=== PATIENT | female | born 1950 | race Caucasian/White ===

== ENCOUNTER 2020-03-26 09:27 | Emergency (ER) | payer OTHER, MEDICARE ==
[2020-03-26] MEDS ORDERED: Potassium Chloride 20 MEQ Tab.ER PO ONE (10:16)
[2020-03-26] MEDS: Ondansetron 4 MG Tab.DIS ONE ×2 (10:45→12:36)
--- NOTE | 2020-03-26 11:00 | EDM.PDOC ---
ED HPI GENERAL MEDICAL PROBLEM - General Chief Complaint: General Stated Complaint: Told to come here for low potassium Time Seen by Provider: 03/26/20 09:40 Source of Information: Reports: Patient History Limitations: Reports: No Limitations - History of Present Illness INITIAL COMMENTS - FREE TEXT/NARRATIVE: Patient is a 69-year-old white female with history of hepatitis C who presents after being told to come to the emergency department by her usual physician after having a low potassium yesterday. Potassium was 2.6 yesterday. Patient denies other issues and says she came in because her doctor wanted her to have her potassium evaluated. Onset: Today Onset Date: 03/25/20 - Related Data Allergies Allergy/AdvReac Type Severity Reaction Status Date / Time Latex, Natural Rubber Allergy Severe Anaphylactic Verified 03/26/20 11:19 Shock metformin Allergy Abdominal Verified 03/26/20 11:21 Cramps Past Medical History HEENT History: Reports: Impaired Vision Other HEENT History: wears glasses Gastrointestinal History: Reports: Cirrhosis, Hepatitis Other Gastrointestinal History: History of Hep C 40 plus years. Is cured now but has cirrhosis. Receives paracenthesis every two weeks for ascitis. Musculoskeletal History: Reports: Arthritis Endocrine/Metabolic History: Reports: Diabetes, Type II Other Dermatologic History: bruises easily - Infectious Disease History Infectious Disease History: Reports: Hepatitis C - Past Surgical History HEENT Surgical History: Reports: None GI Surgical History: Reports: Abdominal paracentesis, Small Bowel Other GI Surgeries/Procedures: hx of ileus and part of small bowel ressected Social & Family History - Tobacco Use Tobacco Use Status *Q: Never Tobacco User Second Hand Smoke Exposure: No - Caffeine Use Caffeine Use: Reports: None - Recreational Drug Use Recreational Drug Use: No ED ROS GENERAL - Review of Systems Review Of Systems: See Below Constitutional: Denies: Fever, Chills Respiratory: Reports: No Symptoms (Occasional cough from PND), Cough. Denies: Shortness of Breath, Wheezing GI/Abdominal: Reports: Nausea. Denies: Abdominal Pain, Vomiting Skin: Reports: Bruising ED EXAM, GENERAL - Physical Exam Exam: See Below Exam Limited By: No Limitations General Appearance: Alert, No Apparent Distress, Cachetic Nose: Normal Inspection, Normal Mucosa Throat/Mouth: Normal Inspection, Normal Lips, Normal Voice Head: Atraumatic, Normocephalic Neck: Supple, Non-Tender Respiratory/Chest: No Respiratory Distress, Lungs Clear, Chest Non-Tender Cardiovascular: Regular Rate, Rhythm, Systolic Murmur (Grade 1/6 sytolic murmur) GI/Abdominal: Soft, Distended, Other (Positive fluid wave) Neurological: Alert, Oriented, Normal Cognition Psychiatric: Normal Affect Skin Exam: Warm, Dry, Ecchymosis (Scattered ecchymosis of arms) #1 Interpretation Rhythm: NSR EKG Interpretation Comments: ld inferiro infart with Q in 2,3 and AVF Course - Vital Signs Text/Narrative:: Patient had BMP which revealed potassium of 3.2. She had been given 40 mEq of extended release potassium prior to result. She was prescribed 10 mEq of potassium chloride oral solution daily until [facility] [place] [facility]. Patient also had elevated BUN this was discussed with the patient's usual physician. Dr. Yancey who agreed with plan for the them to recheck potassium and BUN at next visit on Sunday. No treatment for elevated BUN at this time was recommended. Last Recorded V/S: Last Vital Signs Temp 97.3 F 03/26/20 11:03 Pulse 78 03/26/20 11:03 Resp 20 03/26/20 11:03 BP 106/63 03/26/20 11:03 Pulse Ox 98 03/26/20 11:03 - Orders/Labs/Meds Labs: Laboratory Tests 03/26/20 03/26/20 Range/Units 10: 10:20 WBC 11.9 H (4.0-11.0) K/uL RBC 3.99 (3.80-5.80) M/uL Hgb 10.5 L (11.5-16.5) g/dL Hct 31.3 L (37.0-47.0) % MCV 78 (76-96) fL MCH 26.3 L (27.0-32.0) pg MCHC 33.5 (31.0-35.0) g/dL RDW 15.7 (11.0-16.0) % Plt Count 145 L D (150-500) K/uL MPV 11.5 H (6.0-10.0) fL Neut % (Auto) 83.3 H (45.0-70.0) % Lymph % (Auto) 8.3 L (20.0-40.0) % [place] % (Auto) 7.5 (3.0-10.0) % Eos % (Auto) 0.6 L (1.0-5.0) % Baso % (Auto) 0.3 (0.0-0.5) % Neut # (Auto) 9.90 H (2.00-7.50) K/uL Lymph # (Auto) 0.98 L (1.50-4.00) K/uL [place] # (Auto) 0.89 H (0.20-0.80) K/uL Eos # (Auto) 0.07 (0.04-0.40) K/uL Baso # (Auto) 0.03 (0.02-0.10) K/uL Sodium 132 L (136-145) mmol/L Potassium 3.2 L D (3.5-5.1) mmol/L Chloride 99 (98-107) mmol/L Carbon Dioxide 19.3 L (21.0-32.0) mmol/L Anion Gap 16.9 H (5.0-15.0) mmol/L BUN 93 H* (8-26) mg/dL Creatinine 2.78 H (0.55-1.02) mg/dL Est Cr Clr Drug Dosing 12.81 mL/min Estimated GFR (MDRD) 17 L (>60) MLS/MIN BUN/Creatinine Ratio 33.5 H (6-25) Glucose 251 H (74-100) mg/dL Calcium 8.2 L (8.5-10.1) mg/dL Meds: Medications Discontinued Medications Generic Name Dose Route Start Last Admin Trade Name Bhupinderq PRN Reason Stop Dose Admin Ondansetron HCl Confirm 03/26/20 10:48 03/26/20 12:36 Zofran Odt Administered 03/26/20 10:49 Not Given Dose 4 mg .ROUTE .STK-MED ONE Ondansetron HCl 4 mg 03/26/20 12:36 03/26/20 12:38 Zofran Odt PO 03/26/20 12:37 4 mg ONETIME ONE Administration Potassium Chloride 40 meq 03/26/20 10:16 03/26/20 10:21 Klor-Con M20 PO 03/26/20 10:17 40 meq ONETIME ONE Administration Departure - Departure Time of Disposition: 12:15 Disposition: Home, Self-Care 01 Clinical Impression: Hypokalemia - Discharge Information *PRESCRIPTION DRUG MONITORING PROGRAM REVIEWED*: Not Applicable *COPY OF PRESCRIPTION DRUG MONITORING REPORT IN PATIENT ANUSHA: Not Applicable Instructions: Hypokalemia Referrals: PCP,None [Primary Care Provider] - Forms: ED Department Discharge Additional Instructions: Follow up n Sunday as scheduled Potassium liquid 1 1/2 tsp every day starting tomorrow Return to ED for any worsening or your condition Care Plan Goals: Start taking potassium tomorrow. You will take 1 1/2 tsp every day until Sun. At your appointment at the [facility] in [place] on Sunday please have them recheck your potassium.
[2020-03-26] MEDS ORDERED: Ondansetron 4 MG Tab.DIS PO ONE (12:36)
== END 2020-03-26 12:15 | disposition home or self-care (01) ==
LOC: LB.ED 09:27
DX: E87.6 Hypokalemia (principal); E11.9 Type 2 diabetes mellitus without complications; Z91.040 Latex allergy status; Z88.8 Allergy status to other drugs, medicaments and biological substances
CPT/HCPCS: 36415; 80048; 85025; 93005; 99283; 99285-25; A9270-GY

== ENCOUNTER 2020-04-08 11:10 | Emergency (ER) | payer OTHER, MEDICARE ==
--- NOTE | 2020-04-09 07:25 | ER ---
REASON FOR EMERGENCY ROOM VISIT: Elevated potassium. HISTORY: This 69-year-old woman has a history of chronic hepatitis C with cirrhosis. She also has had chronic renal failure for the past 1 or 2 years. She has mainly seen at the [facility] and has been going there regularly for paracentesis to treat to relieve symptoms of ascites due to her cirrhosis. She is scheduled to return there next Sunday. She has had problems with hyperkalemia and subsequently hypokalemia due to over treatment with Kayexalate. She is known to have elevated creatinine and chronic renal failure. Her labs last time she was at the [facility] came back showing that she has a potassium of 5.6, therefore she was contacted today and told to come into the hospital to have this rechecked. She does feel fine and offers no complaints at this time. PAST MEDICAL HISTORY: 1. Hepatitis C. 2. Chronic renal failure as noted above. 3. Type 2 diabetes mellitus. MEDICATIONS: Reviewed, please see EMR. REVIEW OF SYSTEMS: Unremarkable. ALLERGIES: TO LATEX, NATURAL RUBBER, AND METFORMIN. PHYSICAL EXAMINATION: GENERAL: Reveals a pleasant woman, in no acute distress. VITAL SIGNS: She is afebrile. Heart rate is 81, blood pressure is 110/66, respirations 16, O2 sats 97% on room air. HEENT: No scleral icterus or conjunctivitis is noted. NECK: Supple. No JVD. No adenopathy. CHEST: Clear to auscultation with no wheezes, rhonchi, or rales and good air exchange bilaterally. CARDIAC: Regular rate without murmur. ABDOMEN: She has tense ascites but is nontender. No masses could be palpated. EXTREMITIES: Mild to moderate edema of both ankles. Feet are pink and warm. LABORATORY DATA: We did check a BMP showing that her sodium is 130, her chloride is 101, CO2 is 20.3. Her potassium is elevated at 5.5, her creatinine is 2.96 with a BUN of 74. Her glucose is 218. IMPRESSION: Chronic renal failure with hyperkalemia, mild. PLAN: She had taken Kayexalate in the past and has a prescription that can be renewed, for this, she was taking now 1 dose of Kayexalate (probably 15 g) every 3 times a week. I urged her to resume this and to have her return to get her potassium rechecked on Sunday. She will take 1 dose on Sunday and then another dose on Sunday and we will reassess. [facility] is [facility] and they can follow up with her beyond this point. All questions were answered. She understands and agrees with this plan. DAPHNEY /[id number]
== END 2020-04-08 13:20 | disposition home or self-care (01) ==
LOC: LB.ED 11:10
DX: E87.5 Hyperkalemia (principal); E11.22 Type 2 diabetes mellitus with diabetic chronic kidney disease; N18.9 Chronic kidney disease, unspecified; Z91.040 Latex allergy status; Z88.8 Allergy status to other drugs, medicaments and biological substances; Z86.19 Personal history of other infectious and parasitic diseases
CPT/HCPCS: 36415; 80048; 99283

== ENCOUNTER 2020-06-02 16:21 | Emergency (ER) | payer OTHER, MEDICARE ==
--- NOTE | 2020-06-02 17:20 | EDM.PDOC ---
ED HPI GENERAL MEDICAL PROBLEM - General Chief Complaint: General Stated Complaint: KIDNEY DISEASE Time Seen by Provider: 06/02/20 16:50 Source of Information: Reports: Patient, Old Records History Limitations: Reports: No Limitations - History of Present Illness INITIAL COMMENTS - FREE TEXT/NARRATIVE: patient presented to the ER due to '' abnormal blood tests '', here for a second opinion. 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 No dialysis. Has been following up with the [facility] for this, but was seen today at [facility] - and had blood tests done today that showed worsening of Cr/BUN - per patient's & family reports. They were advised to stop her lasix and to recheck the labs in a couple days - they decided to come to the ER for another eval. Patient denies fever or chills. Reports she is feeling well. No SOB or CP. No abd tenderness. Reports she gets paracentesis every 2 weeks and had one last Sunday. She lives at home with a caregiver. Reports good appetite and energy. Able to ambulate with a walker. Denies fatigue, resp or GI symptoms. Reports that she has a good UOP. No change in mental status or dizziness. Onset: Unknown/Unsure - Related Data Allergies Allergy/AdvReac Type Severity Reaction Status Date / Time Latex, Natural Rubber Allergy Severe Anaphylactic Verified 06/02/20 16:56 Shock metformin Allergy Abdominal Verified 06/02/20 16:56 Cramps Home Meds: Home Meds Furosemide [Lasix] 20 mg PO DAILY 06/02/20 [History] Lactulose 10 gm PO Q8HR #6 ml 06/02/20 [Rx] Sodium Bicarbonate 650 mg PO DAILY 06/02/20 [History] atenoloL [Atenolol] 25 mg PO DAILY 06/02/20 [History] glipiZIDE [Glucotrol] 2.5 mg PO BID 06/02/20 [History] Past Medical History HEENT History: Reports: Impaired Vision Other HEENT History: wears glasses Gastrointestinal History: Reports: Cirrhosis, Hepatitis Other Gastrointestinal History: History of Hep C 40 plus years. Is cured now but has cirrhosis. Receives paracenthesis every two weeks for ascitis. Genitourinary History: Reports: Chronic Renal Insuffiency, Renal Disease Musculoskeletal History: Reports: Arthritis Endocrine/Metabolic History: Reports: Diabetes, Type II Other Dermatologic History: bruises easily - Infectious Disease History Infectious Disease History: Reports: Hepatitis C - Past Surgical History HEENT Surgical History: Reports: None GI Surgical History: Reports: Abdominal paracentesis, Small Bowel Other GI Surgeries/Procedures: hx of ileus and part of small bowel ressected Social & Family History - Caffeine Use Caffeine Use: Reports: Soda Caffeine Use Comment: every once in a while ED ROS GENERAL - Review of Systems Review Of Systems: Comprehensive ROS is negative, except as noted in HPI. Constitutional: Reports: No Symptoms HEENT: Reports: No Symptoms Respiratory: Reports: No Symptoms Cardiovascular: Reports: No Symptoms Endocrine: Reports: No Symptoms GI/Abdominal: Reports: No Symptoms : Reports: No Symptoms Skin: Reports: Bruising Neurological: Reports: No Symptoms Psychiatric: Reports: No Symptoms ED EXAM, GENERAL - Physical Exam Exam: See Below Exam Limited By: No Limitations General Appearance: Alert, WD/WN, No Apparent Distress Eye Exam: Bilateral Eye: Normal Inspection, PERRL Nose: Normal Inspection Head: Atraumatic Respiratory/Chest: No Respiratory Distress, Lungs Clear, Normal Breath Sounds, No Accessory Muscle Use Cardiovascular: Normal Peripheral Pulses, Regular Rate, Rhythm, No Edema GI/Abdominal: Normal Bowel Sounds, Soft, Non-Tender Back Exam: Normal Inspection Extremities: Normal Inspection, Normal Range of Motion, Non-Tender, No Pedal Edema Neurological: Alert, Oriented, Normal Cognition, No Motor/Sensory Deficits Psychiatric: Normal Affect, Normal Mood Skin Exam: Warm, Dry, Intact Course - Vital Signs Last Recorded V/S: Last Vital Signs Temp 36.5 C 06/02/20 19:03 Pulse 72 06/02/20 19:03 Resp 18 06/02/20 19:03 BP 101/57 L 06/02/20 19:03 Pulse Ox 99 06/02/20 19:03 - Orders/Labs/Meds Meds: Medications Discontinued Medications Generic Name Dose Route Start Last Admin Trade Name Peng PRN Reason Stop Dose Admin Lactulose 10 gm 06/02/20 19:19 06/02/20 19:23 Chronulac PO 06/02/20 19:20 10 gm ONETIME ONE Administration - Re-Assessments/Exams Free Text/Narrative Re-Assessment/Exam: 06/02/20 19:30 patient was examined and her labs were reviewed. BUN and Cr from OSH lab are 91 and 3.5. Patient had a BUN in the past of 93, so this isnt something new to here, but the Cr of 3.5 is higher than her usual which is 2.98. Given the patient being asymptomatic - no SOB, No CP, no nausea/emesis and no confusion. Decision was to try out patient therapy by holding on lasix which can be nephrotoxic in her case and to repeat her labs in 2 days - I'll be nuria duran to review her labs in 2 days and will provide her with further instructions. Patient and her grand daughter expressed their understand and appreciation of the service as they were hoping to spend [place] at home and not in the hospital. Given the patient being asymptomatic, I think this plans is reasonable. 06/02/20 19:34 She will also be d/c on lactulose 10mg/15ml TID for 2 days Departure - Departure Time of Disposition: 19:35 Disposition: Home, Self-Care 01 Condition: Good Clinical Impression: Acute on chronic kidney failure, Hyperammonemia - Discharge Information *PRESCRIPTION DRUG MONITORING PROGRAM REVIEWED*: Not Applicable *COPY OF PRESCRIPTION DRUG MONITORING REPORT IN PATIENT ANUSHA: Not Applicable Prescriptions: Lactulose 10 gm PO Q8HR #6 ml Referrals: PCP,None [Primary Care Provider] - Forms: ED Department Discharge Additional Instructions: - hold on taking Lasix for 2 days - return to the hospital on Tuesday 06/05 for blood tests check - I will be available to review your blood tests and provide for instructions. - continue rest of home meds as before - return to the ER if any concerns or signs of confusion Sepsis Event Note (ED) - Focused Exam Vital Signs: Vital Signs Temp Pulse Resp BP Pulse Ox 06/02/20 19:03 36.5 C 72 18 101/57 L 99 06/02/20 17:03 36.3 C 95 18 121/64 99 06/02/20 16:35 36.3 C 95 18 121/64 99 - Problem List & Annotations (1) Acute on chronic kidney failure SNOMED Code(s): 448998366 Code(s): N17.9 - ACUTE KIDNEY FAILURE, UNSPECIFIED; N18.9 - CHRONIC KIDNEY DISEASE, UNSPECIFIED Status: Chronic Priority: Medium Current Visit: Yes Qualifiers: Acute renal failure type: unspecified Chronic kidney disease stage: stage 5, not on chronic dialysis Qualified Code(s): N17.9 - Acute kidney failure, unspecified; N18.5 - Chronic kidney disease, stage 5 (2) Hyperammonemia SNOMED Code(s): 5439155 Code(s): E72.20 - DISORDER OF UREA CYCLE METABOLISM, UNSPECIFIED Status: Chronic Priority: Low Current Visit: Yes - Problem List Review Problem List Initiated/Reviewed/Updated: Yes
[2020-06-02] MEDS ORDERED: Lactulose Soln 10 GM/15 ML 15 ML UD Cup PO ONE (19:19)
== END 2020-06-02 19:58 | disposition home or self-care (01) ==
LOC: LB.ED 16:21
DX: N17.9 Acute kidney failure, unspecified (principal); N18.9 Chronic kidney disease, unspecified; E11.22 Type 2 diabetes mellitus with diabetic chronic kidney disease; E72.20 Disorder of urea cycle metabolism, unspecified; Z91.040 Latex allergy status; Z88.8 Allergy status to other drugs, medicaments and biological substances; Z79.84 Long term (current) use of oral hypoglycemic drugs; Z79.899 Other long term (current) drug therapy
CPT/HCPCS: 99283; A9270-GY

== ENCOUNTER 2020-06-23 19:42 | Emergency (ER) | payer OTHER, MEDICARE ==
[2020-06-23] MEDS ORDERED: Glucagon,Human Recombinant 1 MG Vial IM PRN ×2 (20:26→22:56)
[2020-06-23] MEDS ORDERED: 50% Dextrose in Water 50 ML Syringe IVPUSH PRN ×2 (20:26→22:56)
[2020-06-23] MEDS ORDERED: Insulin NPH/Insulin Regular,Human 70-30 100 Units/ML 10 ML Vial SUBCUT ONE (20:26)
[2020-06-23] MEDS ORDERED: LEVOFLOXACIN IV SCH (20:30)
[2020-06-23] MEDS ORDERED: WATER IV SCH (20:30)
[2020-06-23] MEDS ORDERED: [UNRECOGNIZED DRUG - OTHER] IV SCH (20:30)
[2020-06-23] MEDS ORDERED: DEXTROSE IV SCH (20:30)
[2020-06-23] MEDS ORDERED: Levofloxacin/Dextrose 5%-Water 750 MG in Levofloxacin/Dextrose 5%-Water 150 ML IV SCH (20:45)
[2020-06-23] MEDS ORDERED: Insulin Isophane NPH, Human 100 Units/ML 10 ML Vial SUBCUT ONE (20:46)
--- NOTE | 2020-06-23 22:12 | EDM.PDOC ---
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, IV/IO (LR, Levaquin, EKG, labs, insulin, CXR) - Related Data Allergies Allergy/AdvReac Type Severity Reaction Status Date / Time Latex, Natural Rubber Allergy Severe Anaphylactic Verified 06/23/20 20:09 Shock metformin Allergy Abdominal Verified 06/23/20 20:09 Cramps Home Meds: Home Meds Furosemide [Lasix] 20 mg PO DAILY 06/02/20 [History] Lactulose 10 gm PO Q8HR #6 ml 06/02/20 [Rx] Sodium Bicarbonate 650 mg PO DAILY 06/02/20 [History] atenoloL [Atenolol] 25 mg PO DAILY 06/02/20 [History] glipiZIDE [Glucotrol] 2.5 mg PO BID 06/02/20 [History] Past Medical History HEENT History: Reports: Impaired Vision Other HEENT History: wears glasses Gastrointestinal History: Reports: Cirrhosis, Hepatitis Other Gastrointestinal History: History of Hep C 40 plus years. Is cured now but has cirrhosis. Receives paracenthesis every two weeks for ascitis. Genitourinary History: Reports: Chronic Renal Insuffiency, Renal Disease Musculoskeletal History: Reports: Arthritis Endocrine/Metabolic History: Reports: Diabetes, Type II Other Dermatologic History: bruises easily - Infectious Disease History Infectious Disease History: Reports: Hepatitis C - Past Surgical History HEENT Surgical History: Reports: None GI Surgical History: Reports: Abdominal paracentesis, Small Bowel Other GI Surgeries/Procedures: hx of ileus and part of small bowel ressected Social & Family History - Family History Family Medical History: No Pertinent Family History - Caffeine Use Caffeine Use: Reports: Soda Caffeine Use Comment: every once in a while ED ROS GENERAL - Review of Systems Review Of Systems: See Below Constitutional: Reports: Malaise, Weakness, Decreased Appetite, Weight Loss HEENT: Reports: No Symptoms Respiratory: Reports: No Symptoms Cardiovascular: Reports: No Symptoms Endocrine: Reports: High Glucose GI/Abdominal: Reports: Hematemesis : Reports: Incontinence Musculoskeletal: Reports: Muscle Stiffness Skin: Reports: Other (pale) Neurological: Reports: Confusion, Trouble Speaking Psychiatric: Reports: Confusion Hematologic/Lymphatic: Reports: Easy Bleeding, Easy Bruising ED EXAM, GENERAL - Physical Exam Exam: See Below Exam Limited By: Altered Mental Status Eye Exam: Bilateral Eye: Abnormal EOM (eyes are not tracking ), Abnormal Pupil (pinpoint) Throat/Mouth: Other (dried blood in her mouth and around her lips) Head: Atraumatic, Normocephalic Neck: Normal Inspection Respiratory/Chest: No Respiratory Distress Cardiovascular: Normal Peripheral Pulses GI/Abdominal: Normal Bowel Sounds, Soft, Non-Tender, No Distention (Female) Exam: Deferred Rectal (Female) Exam: Deferred Back Exam: Other (patient is bed bound ) Neurological: Disoriented, Slow to Respond, Other (responds to pain) Psychiatric: Other (blunted mood) Skin Exam: Dry, Mottled (skin tear left arm), Pallor Lymphatic: No Adenopathy #1 Interpretation Rhythm: Other (old lateral, inferior infarct, hyperkalemia) Course - Vital Signs Last Recorded V/S: Last Vital Signs Temp 36.2 C 06/23/20 20:00 Pulse 120 H 06/23/20 21:12 Resp 19 06/23/20 21:12 BP 93/54 L 06/23/20 21:12 Pulse Ox 99 06/23/20 21:12 - Orders/Labs/Meds Orders: Active Orders 24 hr Category Date Time Status Chest 1V Frontal [CR] Routine Exams 06/23/20 20:36 Taken CULTURE BLOOD [BC] Stat Lab 06/23/20 20:50 Received UA W/JAQUAN RFLX IF INDICATED [URIN] Stat Lab 06/23/20 20:16 Ordered Glucagon,Human Recombinant [GlucaGen] Med 06/23/20 20:26 Active 1 mg IM ASDIRECTED PRN Levofloxacin/Dextrose 5%-Water [Levaquin in D5W 750 MG/ Med 06/23/20 20:45 Active 150 ML] 750 mg Levofloxacin/Dextrose 5%-Water [Levaquin in D5W 750 MG/ 150 ML] 150 ml IV Q24H Peripheral TPN [Total Parenteral Nutrition, Peripheral] Med 06/23/20 23:00 Active 1 ml IV Q24H Medication Orders Glucagon (Glucagen) 1 mg IM ASDIRECTED PRN PRN Reason: Hypoglycemia Levofloxacin/Dextrose 750 mg/ (Levofloxacin/Dextrose) 300 mls @ 100 mls/hr IV Q24H [facility] Last Admin: 06/23/20 21:38 Dose: 100 mls/hr Documented by: [id number] Non-Formulary Medication (Total Parenteral Nutrition, Peripheral) 1 mls @ 75 mls/hr IV Q24H [facility]; Protocol Labs: Laboratory Tests 06/23/20 06/23/20 06/23/20 Range/Units 20:15 20:15 20:15 WBC 23.0 H* D (4.0-11.0) K/uL RBC 4.12 (3.80-5.80) M/uL Hgb 10.8 L (11.5-16.5) g/dL Hct 32.1 L (37.0-47.0) % MCV 78 (76-96) fL MCH 26.2 L (27.0-32.0) pg MCHC 33.6 (31.0-35.0) g/dL RDW 17.7 H (11.0-16.0) % Plt Count 173 (150-500) K/uL MPV 11.7 H (6.0-10.0) fL Add Manual Diff Yes Neutrophils % (Manual) 88.0 H (45.0-70.0) % Band Neutrophils % 5.0 % Lymphocytes % (Manual) 3.0 L (20.0-40.0) % Monocytes % (Manual) 4.0 (3.0-10.0) % Platelet Estimate Adequate Poikilocytosis Moderate H Christian Cells Moderate H Acanthocytes (Spur) Occasional H Schistocytes Occasional H ESR (0-30) mm/hr D-Dimer, Quantitative 1550 H (0-400) ng/mL Sodium 131 L (136-145) mmol/L Potassium 6.7 H* D (3.5-5.1) mmol/L Chloride 99 (98-107) mmol/L Carbon Dioxide 12.8 L* D (21.0-32.0) mmol/L Anion Gap 25.9 H (5.0-15.0) mmol/L BUN 153 H* D (8-26) mg/dL Creatinine 5.34 H* D (0.55-1.02) mg/dL Est Cr Clr Drug Dosing TNP Estimated GFR (MDRD) 8 L (>60) MLS/MIN BUN/Creatinine Ratio 28.7 H (6-25) Glucose 284 H D (74-100) mg/dL Lactic Acid (0.4-2.0) mmol/L Calcium 9.0 (8.5-10.1) mg/dL Total Bilirubin 1.4 H D (0.0-1.0) mg/dL AST 26 (15-37) U/L ALT 18 (12-78) U/L Alkaline Phosphatase 90 (46-116) U/L C-Reactive Protein (0.0-3.0) mg/L Total Protein 6.7 (6.4-8.2) g/dL Albumin 3.2 L (3.4-5.0) g/dL Globulin 3.5 (2.2-4.2) g/dL Albumin/Globulin Ratio 0.9 (0.8-2.0) SARS-CoV-2 RNA (BETSY) (NEGATIVE) 06/23/20 06/23/20 06/23/20 Range/Units 20:15 20:15 20:30 WBC (4.0-11.0) K/uL RBC (3.80-5.80) M/uL Hgb (11.5-16.5) g/dL Hct (37.0-47.0) % MCV (76-96) fL MCH (27.0-32.0) pg MCHC (31.0-35.0) g/dL RDW (11.0-16.0) % Plt Count (150-500) K/uL MPV (6.0-10.0) fL Add Manual Diff Neutrophils % (Manual) (45.0-70.0) % Band Neutrophils % % Lymphocytes % (Manual) (20.0-40.0) % Monocytes % (Manual) (3.0-10.0) % Platelet Estimate Poikilocytosis Christian Cells Acanthocytes (Spur) Schistocytes ESR 4 (0-30) mm/hr D-Dimer, Quantitative (0-400) ng/mL Sodium (136-145) mmol/L Potassium (3.5-5.1) mmol/L Chloride (98-107) mmol/L Carbon Dioxide (21.0-32.0) mmol/L Anion Gap (5.0-15.0) mmol/L BUN (8-26) mg/dL Creatinine (0.55-1.02) mg/dL Est Cr Clr Drug Dosing Estimated GFR (MDRD) (>60) MLS/MIN BUN/Creatinine Ratio (6-25) Glucose (74-100) mg/dL Lactic Acid (0.4-2.0) mmol/L Calcium (8.5-10.1) mg/dL Total Bilirubin (0.0-1.0) mg/dL AST (15-37) U/L ALT (12-78) U/L Alkaline Phosphatase (46-116) U/L C-Reactive Protein 7.7 H (0.0-3.0) mg/L Total Protein (6.4-8.2) g/dL Albumin (3.4-5.0) g/dL Globulin (2.2-4.2) g/dL Albumin/Globulin Ratio (0.8-2.0) SARS-CoV-2 RNA (BETSY) Negative (NEGATIVE) 06/23/20 Range/Units 20:50 WBC (4.0-11.0) K/uL RBC (3.80-5.80) M/uL Hgb (11.5-16.5) g/dL Hct (37.0-47.0) % MCV (76-96) fL MCH (27.0-32.0) pg MCHC (31.0-35.0) g/dL RDW (11.0-16.0) % Plt Count (150-500) K/uL MPV (6.0-10.0) fL Add Manual Diff Neutrophils % (Manual) (45.0-70.0) % Band Neutrophils % % Lymphocytes % (Manual) (20.0-40.0) % Monocytes % (Manual) (3.0-10.0) % Platelet Estimate Poikilocytosis [place] Cells Acanthocytes (Spur) Schistocytes ESR (0-30) mm/hr D-Dimer, Quantitative (0-400) ng/mL Sodium (136-145) mmol/L Potassium (3.5-5.1) mmol/L Chloride (98-107) mmol/L Carbon Dioxide (21.0-32.0) mmol/L Anion Gap (5.0-15.0) mmol/L BUN (8-26) mg/dL Creatinine (0.55-1.02) mg/dL Est Cr Clr Drug Dosing Estimated GFR (MDRD) (>60) MLS/MIN BUN/Creatinine Ratio (6-25) Glucose (74-100) mg/dL Lactic Acid 4.8 H (0.4-2.0) mmol/L Calcium (8.5-10.1) mg/dL Total Bilirubin (0.0-1.0) mg/dL AST (15-37) U/L ALT (12-78) U/L Alkaline Phosphatase (46-116) U/L C-Reactive Protein (0.0-3.0) mg/L Total Protein (6.4-8.2) g/dL Albumin (3.4-5.0) g/dL Globulin (2.2-4.2) g/dL Albumin/Globulin Ratio (0.8-2.0) SARS-CoV-2 RNA (BETSY) (NEGATIVE) Meds: Medications Generic Name Dose Route Start Last Admin Trade Name Freq PRN Reason Stop Dose Admin Glucagon 1 mg 06/23/20 20:26 Glucagen IM ASDIRECTED PRN Hypoglycemia Levofloxacin/Dextrose 750 mg/ 300 mls @ 100 mls/hr 06/23/20 20:45 06/23/20 21:38 Levofloxacin/Dextrose IV 100 mls/hr Q24H [facility] Administration Non-Formulary Medication 1 mls @ 75 mls/hr 06/23/20 23:00 Total Parenteral Nutrition, Peripheral IV Q24H [facility] Protocol Discontinued Medications Generic Name Dose Route Start Last Admin Trade Name Freq PRN Reason Stop Dose Admin Levofloxacin/Dextrose 250 mg/ 100 mls @ 50 mls/hr 06/23/20 20:30 Levofloxacin/Dextrose IV Q24H [facility] Insulin Human Isoph/Insulin Regular 10 unit 06/23/20 20:26 Novolin 70-30 SUBCUT 06/23/20 20:27 ONETIME ONE Insulin Human NPH 5 unit 06/23/20 20:46 06/23/20 20:50 Humulin N SUBCUT 06/23/20 20:47 5 units ONETIME ONE Administration Departure - Departure Time of Disposition: 22:30 (for sepsis) Disposition: Admitted As Inpatient 65 Condition: Poor (Chronic renal failure, hyperkalemia, sepsis) Clinical Impression: Sepsis - Discharge Information *PRESCRIPTION DRUG MONITORING PROGRAM REVIEWED*: Not Applicable *COPY OF PRESCRIPTION DRUG MONITORING REPORT IN PATIENT ANUSHA: Not Applicable Referrals: PCP,None [Primary Care Provider] - Care Plan Goals: Patient is now DNR. Sepsis Event Note (ED) - Evaluation Sepsis Screening Result: No Definite Risk Current Stage of Sepsis: Sepsis Possible Source of Sepsis: Genitourinary - Focused Exam Sepsis Event Note Statement: Focused Sepsis Exam Completed Vital Signs: Vital Signs Temp Pulse Resp BP Pulse Ox 06/23/20 21:12 120 H 19 93/54 L 99 06/23/20 20:00 36.2 C 120 H 18 92/55 L 99 - Problem List & Annotations (1) Hyperkalemia SNOMED Code(s): 97807356 Code(s): E87.5 - HYPERKALEMIA Status: Acute Current Visit: Yes (2) Acute on chronic kidney failure SNOMED Code(s): 236442866 Code(s): N17.9 - ACUTE KIDNEY FAILURE, UNSPECIFIED; N18.9 - CHRONIC KIDNEY DISEASE, UNSPECIFIED Status: Chronic Priority: Medium Current Visit: No Qualifiers: Acute renal failure type: unspecified Chronic kidney disease stage: stage 5, not on chronic dialysis Qualified Code(s): N17.9 - Acute kidney failure, unspecified; N18.5 - Chronic kidney disease, stage 5 (3) Sepsis SNOMED Code(s): 98527276 Code(s): A41.9 - SEPSIS, UNSPECIFIED ORGANISM Status: Acute Current Visit: Yes - My Orders Last 24 Hours: My Active Orders 06/23/20 20:16 UA W/JAQUAN RFLX IF INDICATED [URIN] Stat 06/23/20 20:26 Glucagon,Human Recombinant [GlucaGen] 1 mg IM ASDIRECTED PRN 06/23/20 20:36 Chest 1V Frontal [CR] Routine 06/23/20 20:45 Levofloxacin/Dextrose 5%-Water [Levaquin in D5W 750 MG/150 ML] 750 mg Levofloxacin/Dextrose 5%-Water [Levaquin in D5W 750 MG/150 ML] 150 ml IV Q24H 06/23/20 20:50 CULTURE BLOOD [BC] Stat 06/23/20 23:00 Peripheral TPN [Total Parenteral Nutrition, Peripheral] 1 ml IV Q24H - Assessment/Plan Last 24 Hours: My Active Orders 06/23/20 20:16 UA W/JAQUAN RFLX IF INDICATED [URIN] Stat 06/23/20 20:26 Glucagon,Human Recombinant [GlucaGen] 1 mg IM ASDIRECTED PRN 06/23/20 20:36 Chest 1V Frontal [CR] Routine 06/23/20 20:45 Levofloxacin/Dextrose 5%-Water [Levaquin in D5W 750 MG/150 ML] 750 mg Levofloxacin/Dextrose 5%-Water [Levaquin in D5W 750 MG/150 ML] 150 ml IV Q24H 06/23/20 20:50 CULTURE BLOOD [BC] Stat 06/23/20 23:00 Peripheral TPN [Total Parenteral Nutrition, Peripheral] 1 ml IV Q24H Plan: Patient is admitted to the floor.
[2020-06-23] MEDS ORDERED: Calcium Gluconate 10% 1 GM/10 ML SDV IVPUSH ONE (22:55)
[2020-06-23] MEDS ORDERED: Insulin Regular, Human 100 Units/ML 3 ML Vial IV ONE (22:56)
[2020-06-23] MEDS ORDERED: Sodium Chloride 0.9% 500 ML IV ONE (22:58)
[2020-06-23] MEDS ORDERED: Pantoprazole 40 MG in Sodium Chloride 0.9% 100 ML IV ONE (22:58)
[2020-06-23] MEDS ORDERED: Peripheral TPN 1 ML IV SCH (23:00)
--- NOTE | 2020-06-23 23:24 | PCM.CONS ---
H&P History of Present Illness - General Date of Service: 06/23/20 Admit Problem/Dx: Admission Diagnosis/Problem Admission Diagnosis/Problem Sepsis - History of Present Illness Initial Comments - Free Text/Narative: Deandre Nguyen Hospitalist ADMISSION SUPPORT NOTE eHospitalist was contacted by Gwendolyn Rios with request of admission support. Chief complaint: Failure to thrive HPI: The history was gathered from discussion with the patient's Mr. Yo Delgadillo is the patient has altered mental status and is unable to assist with history gathering. He reports that she has had a gradual decline in her medical condition over the past 10 months to 1 year but more so over the past month. She has not eaten in several days, she has been getting weaker and has had weight loss over several months. She apparently also vomited blood today. He reports that she states "I just want to ". She told him in the past "my kidneys are shutting down" and also "my liver function has shut down 90%". So the family is aware that she is dying and the patient has refused dialysis. Her reports that she is in a chronic state of pain because of arthritis. She did fall 1 week ago when EMS was called in. At that time apparently her wounds were bandaged but she refused to go to the hospital for evaluation. - Related Data Allergies/Adverse Reactions: Allergies Allergy/AdvReac Type Severity Reaction Status Date / Time Latex, Natural Rubber Allergy Severe Anaphylactic Verified 06/23/20 20:09 Shock metformin Allergy Abdominal Verified 06/23/20 20:09 Cramps Home Medications: Home Meds Furosemide [Lasix] 20 mg PO DAILY 06/02/20 [History] Lactulose 10 gm PO Q8HR #6 ml 06/02/20 [Rx] Sodium Bicarbonate 650 mg PO DAILY 06/02/20 [History] atenoloL [Atenolol] 25 mg PO DAILY 06/02/20 [History] glipiZIDE [Glucotrol] 2.5 mg PO BID 06/02/20 [History] Past Medical History HEENT History: Reports: Impaired Vision Other HEENT History: wears glasses Gastrointestinal History: Reports: Cirrhosis, Hepatitis Other Gastrointestinal History: History of Hep C 40 plus years. Is cured now but has cirrhosis. Receives paracenthesis every two weeks for ascitis. Genitourinary History: Reports: Chronic Renal Insuffiency, Renal Disease Musculoskeletal History: Reports: Arthritis Endocrine/Metabolic History: Reports: Diabetes, Type II Other Dermatologic History: bruises easily - Infectious Disease History Infectious Disease History: Reports: Hepatitis C - Past Surgical History HEENT Surgical History: Reports: None GI Surgical History: Reports: Abdominal paracentesis, Small Bowel Other GI Surgeries/Procedures: hx of ileus and part of small bowel ressected - History Comment History Comment: . Home Medications: Reviewed see EMR for details. Pertinent Medical History: Her had limited history as he reports that his was somewhat secretive about her medical condition at times and he never accompanied her to her doctor's visits-renal failure, cirrhosis her reports that she required paracentesis every 2 weeks, history of alcohol abuse with abstinence about 13 years ago. Pertinent Social History: , worked as a nurse in the [employer], [employer] Social & Family History - Family History Family Medical History: No Pertinent Family History - Caffeine Use Caffeine Use: Reports: Soda Caffeine Use Comment: every once in a while H&P Review of Systems - Review of Systems: Review Of Systems: Unable To Obtain Reason Not Obtained: patient with altered mental status Exam - Exam Exam: See Below - Vital Signs Vital Signs: Last Vital Signs Temp 36.2 C 06/23/20 20:00 Pulse 120 H 06/23/20 21:12 Resp 19 06/23/20 21:12 BP 93/54 L 06/23/20 21:12 Pulse Ox 99 06/23/20 21:12 - Exam Physical Exam Comments:: Exam (performed via interactive video with assistance of bedside nurse): General: Lethargic, cachectic appearing, no acute distress HEENT: Pupils reported ERRL, teeth clenched so was unable to evaluate mouth Lungs: Clear to auscultation bilaterally without crackle or wheeze CV: Regular rate and rhythm without loud murmur rub or gallop Abd: And does not exhibit signs of pain with palpation done by bedside nurse, midline scar in abdomen, periumbilical wound that had a bandage over it which was removed Ext: No pitting edema noted Skin: Multiple purpura and petechiae lesions on chest and both arms, bandage over left forearm where there is a skin tear from a fall 1 week ago Neuro: Lethargic, responds only to noxious stimuli, opens eyes spontaneously at times - Patient Data Lab Results Last 24 hrs: Laboratory Results - last 24 hr 06/23/20 06/23/20 06/23/20 Range/Units 20:15 20:15 20:15 WBC 23.0 H* D (4.0-11.0) K/uL RBC 4.12 (3.80-5.80) M/uL Hgb 10.8 L (11.5-16.5) g/dL Hct 32.1 L (37.0-47.0) % MCV 78 (76-96) fL MCH 26.2 L (27.0-32.0) pg MCHC 33.6 (31.0-35.0) g/dL RDW 17.7 H (11.0-16.0) % Plt Count 173 (150-500) K/uL MPV 11.7 H (6.0-10.0) fL Add Manual Diff Yes Neutrophils % (Manual) 88.0 H (45.0-70.0) % Band Neutrophils % 5.0 % Lymphocytes % (Manual) 3.0 L (20.0-40.0) % Monocytes % (Manual) 4.0 (3.0-10.0) % Platelet Estimate Adequate Poikilocytosis Moderate H Christian Cells Moderate H Acanthocytes (Spur) Occasional H Schistocytes Occasional H ESR (0-30) mm/hr D-Dimer, Quantitative 1550 H (0-400) ng/mL VBG pH (7.31-7.41) VBG pCO2 (41-51) mm/Hg VBG pO2 (30-50) mm/Hg VBG HCO3 (23.0-28.0) mmol/L VBG Base Excess (-2-3) mm/L O2 Delivery Device Sodium 131 L (136-145) mmol/L Potassium 6.7 H* D (3.5-5.1) mmol/L Chloride 99 (98-107) mmol/L Carbon Dioxide 12.8 L* D (21.0-32.0) mmol/L Anion Gap 25.9 H (5.0-15.0) mmol/L BUN 153 H* D (8-26) mg/dL Creatinine 5.34 H* D (0.55-1.02) mg/dL Est Cr Clr Drug Dosing TNP Estimated GFR (MDRD) 8 L (>60) MLS/MIN BUN/Creatinine Ratio 28.7 H (6-25) Glucose 284 H D (74-100) mg/dL Lactic Acid (0.4-2.0) mmol/L Calcium 9.0 (8.5-10.1) mg/dL Total Bilirubin 1.4 H D (0.0-1.0) mg/dL AST 26 (15-37) U/L ALT 18 (12-78) U/L Alkaline Phosphatase 90 (46-116) U/L Ammonia (11-32) umol/L C-Reactive Protein (0.0-3.0) mg/L Total Protein 6.7 (6.4-8.2) g/dL Albumin 3.2 L (3.4-5.0) g/dL Globulin 3.5 (2.2-4.2) g/dL Albumin/Globulin Ratio 0.9 (0.8-2.0) SARS-CoV-2 RNA (BETSY) (NEGATIVE) 06/23/20 06/23/20 06/23/20 Range/Units 20:15 20:15 20:30 WBC (4.0-11.0) K/uL RBC (3.80-5.80) M/uL Hgb (11.5-16.5) g/dL Hct (37.0-47.0) % MCV (76-96) fL MCH (27.0-32.0) pg MCHC (31.0-35.0) g/dL RDW (11.0-16.0) % Plt Count (150-500) K/uL MPV (6.0-10.0) fL Add Manual Diff Neutrophils % (Manual) (45.0-70.0) % Band Neutrophils % % Lymphocytes % (Manual) (20.0-40.0) % Monocytes % (Manual) (3.0-10.0) % Platelet Estimate Poikilocytosis Christian Cells Acanthocytes (Spur) Schistocytes ESR 4 (0-30) mm/hr D-Dimer, Quantitative (0-400) ng/mL VBG pH (7.31-7.41) VBG pCO2 (41-51) mm/Hg VBG pO2 (30-50) mm/Hg VBG HCO3 (23.0-28.0) mmol/L VBG Base Excess (-2-3) mm/L O2 Delivery Device Sodium (136-145) mmol/L Potassium (3.5-5.1) mmol/L Chloride (98-107) mmol/L Carbon Dioxide (21.0-32.0) mmol/L Anion Gap (5.0-15.0) mmol/L BUN (8-26) mg/dL Creatinine (0.55-1.02) mg/dL Est Cr Clr Drug Dosing Estimated GFR (MDRD) (>60) MLS/MIN BUN/Creatinine Ratio (6-25) Glucose (74-100) mg/dL Lactic Acid (0.4-2.0) mmol/L Calcium (8.5-10.1) mg/dL Total Bilirubin (0.0-1.0) mg/dL AST (15-37) U/L ALT (12-78) U/L Alkaline Phosphatase (46-116) U/L Ammonia (11-32) umol/L C-Reactive Protein 7.7 H (0.0-3.0) mg/L Total Protein (6.4-8.2) g/dL Albumin (3.4-5.0) g/dL Globulin (2.2-4.2) g/dL Albumin/Globulin Ratio (0.8-2.0) SARS-CoV-2 RNA (BETSY) Negative (NEGATIVE) 06/23/20 06/23/20 06/23/20 Range/Units 20:50 22:55 22:55 WBC (4.0-11.0) K/uL RBC (3.80-5.80) M/uL Hgb (11.5-16.5) g/dL Hct (37.0-47.0) % MCV (76-96) fL MCH (27.0-32.0) pg MCHC (31.0-35.0) g/dL RDW (11.0-16.0) % Plt Count (150-500) K/uL MPV (6.0-10.0) fL Add Manual Diff Neutrophils % (Manual) (45.0-70.0) % Band Neutrophils % % Lymphocytes % (Manual) (20.0-40.0) % Monocytes % (Manual) (3.0-10.0) % Platelet Estimate Poikilocytosis Christian Cells Acanthocytes (Spur) Schistocytes ESR (0-30) mm/hr D-Dimer, Quantitative (0-400) ng/mL VBG pH 7.25 L (7.31-7.41) VBG pCO2 24.1 L (41-51) mm/Hg VBG pO2 31.6 (30-50) mm/Hg VBG HCO3 10.5 L (23.0-28.0) mmol/L VBG Base Excess -16.8 L (-2-3) mm/L O2 Delivery Device Room air Sodium (136-145) mmol/L Potassium (3.5-5.1) mmol/L Chloride (98-107) mmol/L Carbon Dioxide (21.0-32.0) mmol/L Anion Gap (5.0-15.0) mmol/L BUN (8-26) mg/dL Creatinine (0.55-1.02) mg/dL Est Cr Clr Drug Dosing Estimated GFR (MDRD) (>60) MLS/MIN BUN/Creatinine Ratio (6-25) Glucose (74-100) mg/dL Lactic Acid 4.8 H (0.4-2.0) mmol/L Calcium (8.5-10.1) mg/dL Total Bilirubin (0.0-1.0) mg/dL AST (15-37) U/L ALT (12-78) U/L Alkaline Phosphatase (46-116) U/L Ammonia 48 H (11-32) umol/L C-Reactive Protein (0.0-3.0) mg/L Total Protein (6.4-8.2) g/dL Albumin (3.4-5.0) g/dL Globulin (2.2-4.2) g/dL Albumin/Globulin Ratio (0.8-2.0) SARS-CoV-2 RNA (BETSY) (NEGATIVE) Result Diagrams: 06/23/20 20:15 06/23/20 20:15 Sepsis Event Note - Evaluation Sepsis Screening Result: No Definite Risk - Focused Exam Vital Signs: Vital Signs Temp Pulse Resp BP Pulse Ox 06/23/20 21:12 120 H 19 93/54 L 99 06/23/20 20:00 36.2 C 120 H 18 92/55 L 99 Consult PN Assessment/Plan Procedures: Procedures ASSAY OF AMMONIA (06/05/20) ASSAY THYROID STIM HORMONE (08/07/13) COMPLETE CBC W/AUTO DIFF WBC (03/26/20) COMPREHEN METABOLIC PANEL (06/05/20) CT ABD & PELVIS W/O CONTRAST (11/10/14) ELECTROCARDIOGRAM TRACING (03/26/20) EMERGENCY DEPT VISIT (06/02/20) EMERGENCY DEPT VISIT (03/26/20) GLYCOSYLATED HEMOGLOBIN TEST (12/01/16) HEMATOCRIT (11/05/14) HEMOGLOBIN (11/05/14) HEPATIC FUNCTION PANEL (11/05/14) LIPID PANEL (09/14/15) METABOLIC PANEL TOTAL CA (04/08/20) NEG PRESS WOUND TX </=50 CM (09/11/19) PT EVAL LOW COMPLEX 20 MIN (09/11/19) ROUTINE VENIPUNCTURE (06/05/20) THER/PROPH/DIAG IV INF ADDON (01/23/19) THER/PROPH/DIAG IV INF INIT (01/23/19) TRANSVAGINAL US NON-OB (11/05/14) UR ALBUMIN QUANTITATIVE (12/01/16) US EXAM ABDOM COMPLETE (11/05/14) US EXAM PELVIC COMPLETE (11/05/14) X-RAY EXAM OF KNEE 1 OR 2 (02/05/14) X-RAY EXAM OF KNEES (02/05/14) Problem List Initiated/Reviewed/Updated: Yes My Orders Last 24 Hours: My Active Orders 06/23/20 22:55 BLOOD GAS VENOUS [BG] Routine 06/23/20 22:56 Dextrose 50% in Water 50 ml IVPUSH ASDIRECTED PRN Glucagon,Human Recombinant [GlucaGen] 1 mg IM ASDIRECTED PRN 06/23/20 22:58 Pantoprazole [ProTONIX IV] 40 mg Sodium Chloride 0.9% [Normal Saline] 100 ml IV .BOLUS Sodium Chloride 0.9% [Normal Saline] 500 ml IV .BOLUS Plan: Recent lab/Imaging: Reviewed see EMR for details EKG per my interpretation shows accelerated junctional rhythm Assessment and Plan: 1. Failure to thrive 2. Acute kidney injury on CKD 3. Metabolic acidosis 4. GI bleed 5. Hyperkalemia 6. Sepsis 7. Altered mental status 8. Leukocytosis 9. CODE STATUS-DNR/DNI/comfort care Disposition-I had and extensive discussion with the patient's spouse. He indicated that the patient wanted to and that he understands that she is dying at this time and given her complicated presentation any further treatment would be futile. He agreed to transition to comfort care which means all aggressive treatment would be discontinued at this time and implementation of medications and treatment for comfort only will be initiated. He reports that the patient knew she was dying stating "I just want to " and at times noting her liver and renal failure. Sample Coordinator services offered but refused. Nurse updated with plan of care. Chart review was performed as well as evaluation of the patient via video. Thank you for involving ehospitalist. Please contact [phone] if further assistance is needed.
[2020-06-23] MEDS ORDERED: Acetaminophen 325 MG Tab PO PRN (23:32)
[2020-06-23] MEDS ORDERED: Ondansetron 4 MG/2 ML SDV IV PRN (23:32)
[2020-06-23] MEDS ORDERED: Acetaminophen 650 MG Supp RECTAL PRN (23:32)
[2020-06-23] MEDS ORDERED: LORazepam 2 MG/ML SDV IVPUSH PRN (23:38)
[2020-06-23] MEDS ORDERED: Acetaminophen 650 MG Supp ONE (23:40)
[2020-06-24] MEDS: Morphine 2 MG/ML SYRINGE IVPUSH PRN ×2 (00:04→05:45)
[2020-06-24] MEDS: Sodium Chloride 0.9% 10 ML Syringe FLUSH PRN ×3 (00:04→05:46)
[2020-06-24 00:25] VITALS: BP 85/50; PULSE 110
--- NOTE | 2020-06-24 09:17 | PCM.PN ---
- General Info Date of Service: 06/24/20 Admission Dx/Problem (Free Text): Brought in by EMS, patient was unresponsive with normal vitals. History of not eating or drinking for 3 days. Functional Status: Reports: Pain Controlled - Review of Systems Systems Review Comment:: All vital body system's function have ceased. Patient passed at 0820. - Patient Data Vitals - Most Recent: Last Vital Signs Temp 36.3 C 06/24/20 00:19 Pulse 110 H 06/24/20 00:19 Resp 20 06/24/20 00:19 BP 85/50 L 06/24/20 00:19 Pulse Ox 99 06/23/20 21:12 Weight - Most Recent: 43.091 kg Lab Results Last 24 Hours: Laboratory Results - last 24 hr 06/23/20 06/23/20 06/23/20 Range/Units 20:15 20:15 20:15 WBC 23.0 H* D (4.0-11.0) K/uL RBC 4.12 (3.80-5.80) M/uL Hgb 10.8 L (11.5-16.5) g/dL Hct 32.1 L (37.0-47.0) % MCV 78 (76-96) fL MCH 26.2 L (27.0-32.0) pg MCHC 33.6 (31.0-35.0) g/dL RDW 17.7 H (11.0-16.0) % Plt Count 173 (150-500) K/uL MPV 11.7 H (6.0-10.0) fL Add Manual Diff Yes Neutrophils % (Manual) 88.0 H (45.0-70.0) % Band Neutrophils % 5.0 % Lymphocytes % (Manual) 3.0 L (20.0-40.0) % Monocytes % (Manual) 4.0 (3.0-10.0) % Platelet Estimate Adequate Poikilocytosis Moderate H Christian Cells Moderate H Acanthocytes (Spur) Occasional H Schistocytes Occasional H ESR (0-30) mm/hr D-Dimer, Quantitative 1550 H (0-400) ng/mL VBG pH (7.31-7.41) VBG pCO2 (41-51) mm/Hg VBG pO2 (30-50) mm/Hg VBG HCO3 (23.0-28.0) mmol/L VBG O2 Saturation (60-85) % VBG Base Excess (-2-3) mm/L O2 Delivery Device Sodium 131 L (136-145) mmol/L Potassium 6.7 H* D (3.5-5.1) mmol/L Chloride 99 (98-107) mmol/L Carbon Dioxide 12.8 L* D (21.0-32.0) mmol/L Anion Gap 25.9 H (5.0-15.0) mmol/L BUN 153 H* D (8-26) mg/dL Creatinine 5.34 H* D (0.55-1.02) mg/dL Est Cr Clr Drug Dosing TNP Estimated GFR (MDRD) 8 L (>60) MLS/MIN BUN/Creatinine Ratio 28.7 H (6-25) Glucose 284 H D (74-100) mg/dL Lactic Acid (0.4-2.0) mmol/L Calcium 9.0 (8.5-10.1) mg/dL Total Bilirubin 1.4 H D (0.0-1.0) mg/dL AST 26 (15-37) U/L ALT 18 (12-78) U/L Alkaline Phosphatase 90 (46-116) U/L Ammonia (11-32) umol/L C-Reactive Protein (0.0-3.0) mg/L Total Protein 6.7 (6.4-8.2) g/dL Albumin 3.2 L (3.4-5.0) g/dL Globulin 3.5 (2.2-4.2) g/dL Albumin/Globulin Ratio 0.9 (0.8-2.0) SARS-CoV-2 RNA (BETSY) (NEGATIVE) 06/23/20 06/23/20 06/23/20 Range/Units 20:15 20:15 20:30 WBC (4.0-11.0) K/uL RBC (3.80-5.80) M/uL Hgb (11.5-16.5) g/dL Hct (37.0-47.0) % MCV (76-96) fL MCH (27.0-32.0) pg MCHC (31.0-35.0) g/dL RDW (11.0-16.0) % Plt Count (150-500) K/uL MPV (6.0-10.0) fL Add Manual Diff Neutrophils % (Manual) (45.0-70.0) % Band Neutrophils % % Lymphocytes % (Manual) (20.0-40.0) % Monocytes % (Manual) (3.0-10.0) % Platelet Estimate Poikilocytosis Christian Cells Acanthocytes (Spur) Schistocytes ESR 4 (0-30) mm/hr D-Dimer, Quantitative (0-400) ng/mL VBG pH (7.31-7.41) VBG pCO2 (41-51) mm/Hg VBG pO2 (30-50) mm/Hg VBG HCO3 (23.0-28.0) mmol/L VBG O2 Saturation (60-85) % VBG Base Excess (-2-3) mm/L O2 Delivery Device Sodium (136-145) mmol/L Potassium (3.5-5.1) mmol/L Chloride (98-107) mmol/L Carbon Dioxide (21.0-32.0) mmol/L Anion Gap (5.0-15.0) mmol/L BUN (8-26) mg/dL Creatinine (0.55-1.02) mg/dL Est Cr Clr Drug Dosing Estimated GFR (MDRD) (>60) MLS/MIN BUN/Creatinine Ratio (6-25) Glucose (74-100) mg/dL Lactic Acid (0.4-2.0) mmol/L Calcium (8.5-10.1) mg/dL Total Bilirubin (0.0-1.0) mg/dL AST (15-37) U/L ALT (12-78) U/L Alkaline Phosphatase (46-116) U/L Ammonia (11-32) umol/L C-Reactive Protein 7.7 H (0.0-3.0) mg/L Total Protein (6.4-8.2) g/dL Albumin (3.4-5.0) g/dL Globulin (2.2-4.2) g/dL Albumin/Globulin Ratio (0.8-2.0) SARS-CoV-2 RNA (BETSY) Negative (NEGATIVE) 06/23/20 06/23/20 06/23/20 Range/Units 20:50 22:55 22:55 WBC (4.0-11.0) K/uL RBC (3.80-5.80) M/uL Hgb (11.5-16.5) g/dL Hct (37.0-47.0) % MCV (76-96) fL MCH (27.0-32.0) pg MCHC (31.0-35.0) g/dL RDW (11.0-16.0) % Plt Count (150-500) K/uL MPV (6.0-10.0) fL Add Manual Diff Neutrophils % (Manual) (45.0-70.0) % Band Neutrophils % % Lymphocytes % (Manual) (20.0-40.0) % Monocytes % (Manual) (3.0-10.0) % Platelet Estimate Poikilocytosis Lewis Cells Acanthocytes (Spur) Schistocytes ESR (0-30) mm/hr D-Dimer, Quantitative (0-400) ng/mL VBG pH 7.25 L (7.31-7.41) VBG pCO2 24.1 L (41-51) mm/Hg VBG pO2 (30-50) mm/Hg VBG HCO3 10.5 L (23.0-28.0) mmol/L VBG O2 Saturation 52.5 L (60-85) % VBG Base Excess -16.8 L (-2-3) mm/L O2 Delivery Device Room air Sodium (136-145) mmol/L Potassium (3.5-5.1) mmol/L Chloride (98-107) mmol/L Carbon Dioxide (21.0-32.0) mmol/L Anion Gap (5.0-15.0) mmol/L BUN (8-26) mg/dL Creatinine (0.55-1.02) mg/dL Est Cr Clr Drug Dosing Estimated GFR (MDRD) (>60) MLS/MIN BUN/Creatinine Ratio (6-25) Glucose (74-100) mg/dL Lactic Acid 4.8 H (0.4-2.0) mmol/L Calcium (8.5-10.1) mg/dL Total Bilirubin (0.0-1.0) mg/dL AST (15-37) U/L ALT (12-78) U/L Alkaline Phosphatase (46-116) U/L Ammonia 48 H (11-32) umol/L C-Reactive Protein (0.0-3.0) mg/L Total Protein (6.4-8.2) g/dL Albumin (3.4-5.0) g/dL Globulin (2.2-4.2) g/dL Albumin/Globulin Ratio (0.8-2.0) SARS-CoV-2 RNA (BETSY) (NEGATIVE) Med Orders - Current: Current Medications Acetaminophen (Tylenol) 650 mg PO Q4H PRN PRN Reason: Pain (Mild 1-3)/fever Acetaminophen (Tylenol) 650 mg RECTAL Q4H PRN PRN Reason: Mild pain/fever Last Admin: 06/23/20 23:55 Dose: 650 mg Documented by: Dextrose/Water (Dextrose 50% In Water) 50 ml IVPUSH ASDIRECTED PRN PRN Reason: Hypoglycemia Glucagon (Glucagen) 1 mg IM ASDIRECTED PRN PRN Reason: Hypoglycemia Lorazepam (Ativan) 1 mg IVPUSH Q6H PRN PRN Reason: Agitation Morphine Sulfate (Morphine) 1 mg IVPUSH Q2H PRN PRN Reason: Pain (moderate 4-6) Last Admin: 06/24/20 05:45 Dose: 1 mg Documented by: Ondansetron HCl (Zofran) 4 mg IV Q4H PRN PRN Reason: Nausea/Vomiting Sodium Chloride (Saline Flush) 10 ml FLUSH ASDIRECTED PRN PRN Reason: Keep Vein Open Last Admin: 06/24/20 05:46 Dose: 10 ml Documented by: Discontinued Medications Acetaminophen (Tylenol) Confirm Administered Dose 650 mg .ROUTE .STK-MED ONE Stop: 06/23/20 23:41 Last Admin: 06/23/20 23:47 Dose: Not Given Documented by: Calcium Gluconate (Calcium Gluconate) 2 gm IVPUSH ONETIME ONE Stop: 06/23/20 22:56 Last Admin: 06/24/20 00:05 Dose: Not Given Documented by: Glucagon (Glucagen) 1 mg IM ASDIRECTED PRN PRN Reason: Hypoglycemia Levofloxacin/Dextrose 250 mg/ (Levofloxacin/Dextrose) 100 mls @ 50 mls/hr IV Q24H [facility] Last Admin: 06/24/20 00:06 Dose: Not Given Documented by: Levofloxacin/Dextrose 750 mg/ (Levofloxacin/Dextrose) 300 mls @ 100 mls/hr IV Q24H [facility] Last Admin: 06/23/20 21:38 Dose: 100 mls/hr Documented by: Non-Formulary Medication (Total Parenteral Nutrition, Peripheral) 1 mls @ 75 mls/hr IV Q24H [facility]; Protocol Last Admin: 06/24/20 00:02 Dose: Not Given Documented by: Pantoprazole Sodium 40 mg/ (Sodium Chloride) 100 mls @ 200 mls/hr IV .BOLUS ONE Stop: 06/23/20 23:27 Last Admin: 06/24/20 00:02 Dose: Not Given Documented by: Sodium Chloride (Normal Saline) 500 mls @ 250 mls/hr IV .BOLUS ONE Stop: 06/24/20 00:57 Last Admin: 06/24/20 00:02 Dose: Not Given Documented by: Insulin Human Isoph/Insulin Regular (Novolin 70-30) 10 unit SUBCUT ONETIME ONE Stop: 06/23/20 20:27 Last Admin: 06/24/20 00:06 Dose: Not Given Documented by: Insulin Human NPH (Humulin N) 5 unit SUBCUT ONETIME ONE Stop: 06/23/20 20:47 Last Admin: 06/23/20 20:50 Dose: 5 units Documented by: Insulin Human Regular (Humulin R) 5 unit IV ONETIME ONE Stop: 06/23/20 22:57 Last Admin: 06/24/20 00:05 Dose: Not Given Documented by: Comments:: No Vital noted at this time. - Exam General: Other () HEENT: Other (Fixed and dilated midpoint) Lungs: Other (Not breathing) Cardiovascular: Other (No heart rate) GI/Abdominal Exam: Soft (No active sounds noted) Extremities: Pallor Peripheral Pulses: 0: Carotid (L) (negative pulses), Carotid (R), Femoral (L), Femoral (R) (negative) Skin: Warm, Dry Neurological: Other (unresponsive) Sepsis Event Note - Evaluation Sepsis Screening Result: Severe Sepsis Risk - Focused Exam Vital Signs: Vital Signs Temp Pulse Resp BP Pulse Ox 06/24/20 00:19 36.3 C 110 H 20 85/50 L 06/23/20 21:12 120 H 19 93/54 L 99 - Problem List & Annotations (1) Hyperkalemia SNOMED Code(s): 91757688 Code(s): E87.5 - HYPERKALEMIA Status: Acute Current Visit: Yes (2) Acute on chronic kidney failure SNOMED Code(s): 670844824 Code(s): N17.9 - ACUTE KIDNEY FAILURE, UNSPECIFIED; N18.9 - CHRONIC KIDNEY DISEASE, UNSPECIFIED Status: Chronic Priority: Medium Current Visit: No Qualifiers: Acute renal failure type: unspecified Chronic kidney disease stage: stage 5, not on chronic dialysis Qualified Code(s): N17.9 - Acute kidney failure, unspecified; N18.5 - Chronic kidney disease, stage 5 (3) Sepsis SNOMED Code(s): 56896076 Code(s): A41.9 - SEPSIS, UNSPECIFIED ORGANISM Status: Acute Current Visit: Yes - Problem List Review Problem List Initiated/Reviewed/Updated: Yes - My Orders Last 24 Hours: My Active Orders 06/23/20 20:36 Chest 1V Frontal [CR] Routine 06/23/20 20:50 CULTURE BLOOD [BC] Stat 06/23/20 22:30 Admission Status [Patient Status] [ADT] Routine 06/24/20 00:26 CULTURE MRSA SURVEY [RM] Routine 06/24/20 10:00 Wound Care [RC] DAILY - Assessment Assessment:: Upon physical exam at 0820 on 06/24/2019 Mrs. Delgadillo has no pulse or heart rate and no respirations. Eyes are fixed and dilated in midposition and not tracking, not responsive to light. No corneal reflex. Not responsive to pain or verbal commands. TOD is documented as 0820. - Plan Plan:: Patients and family called to pay final visit at 0840.
--- NOTE | 2020-06-25 07:47 | CR ---
DATE OF SERVICE: 06/23/20 CLINICAL DATA: Sepsis AP CHEST: No priors. The patient is rotated to the right. The heart size is normal. The lungs are clear. No pneumothorax. No pleural effusions. No evidence of acute intrathoracic disease. [id number] [facility]
== END 2020-06-23 22:30 | disposition critical access hospital (66) ==
LOC: LB.ED 19:42 → UNDOADMIN 22:10 → LB.MS 22:10 → UNDOADMIN 22:33 → LB.MS 22:39 → UNDODISIN 06-24 08:20
DX: A41.9 Sepsis, unspecified organism (principal); E11.22 Type 2 diabetes mellitus with diabetic chronic kidney disease; N18.5 Chronic kidney disease, stage 5; E87.5 Hyperkalemia; K74.60 Unspecified cirrhosis of liver; Z20.822 Contact with and (suspected) exposure to COVID-19; Z91.040 Latex allergy status; Z88.8 Allergy status to other drugs, medicaments and biological substances; Z79.84 Long term (current) use of oral hypoglycemic drugs; Z79.899 Other long term (current) drug therapy
CPT/HCPCS: 36415; 71045; 80053; 82140; 82803; 83605; 85025; 85379; 85651; 86140; 87040; 93005; 96365; 99223; 99238; 99285-25; A0425; A0429; A9270-GY; J1815-GY; J1956; J2270; U0002